=== PATIENT | male | born 1955 | race Caucasian/White ===

== ENCOUNTER → 2017-01-22 | Outpatient (CLI) | payer OTHER ==
[~2017-01-22] MED LIST: APRESOLINE50 MG PO; ASPIRIN LO-DOSE81 MG PO; ASTRAGALUS PO; BENTYL20 MG PO; BRILINTA90 MG PO; BYSTOLIC10 MG PO; CHLORTHALIDONE25 MG PO; COQ-10100 MG PO; COZAAR25 MG PO; FLEXERIL10 MG PO; HUMIBID LA (MU600 MG PO; IMDUR30 MG PO; IMDUR60 MG PO; INSPRA25 MG PO; K-TAB ER20 MEQ PO; LASIX40 MG PO; LIPITOR80 MG PO; MAGNESIUM250 M1 PO; NITROSTAT0.4 MG SL; NORVASC10 MG PO; NORVASC5 MG PO; PROTONIX40 MG PO; SUDAFED PE10 MG PO; TOPROL XL25 MG PO; TYLENOL325 MG PO; VASOTEC2.5 MG PO; VASOTEC5 MG PO
[2017-01-22 16:51] LABS: ALBUMIN 4.1 gm/dL (3.5-5.0); ALK PHOS 135 IU/L (33-138); ALT 38 IU/L (12-78); AST 30 IU/L (10-40); BLOOD UREA NITROGEN 17 mg/dL (6-24); CALCIUM 8.6 mg/dL (8.5-10.5); CHLORIDE 109 mMol/L (96-110); CO2 26 mMol/L (22-32); CREATININE 1.2 mg/dL (0.6-1.3); SODIUM 143 mMol/L (135-145); TOTAL PROTEIN 6.8 g/dL (6.0-8.4)
[2017-01-22 16:56] LABS: ESTIMATED GFR (MDRD EQUATION) > 60
== END ==
LOC: LNHI 16:29
PROVIDERS: Internal Medicine Interventional Cardiology
DX: I25.5 Ischemic cardiomyopathy (principal)

== ENCOUNTER → 2017-04-30 | Outpatient (CLI) | payer OTHER ==
[2017-04-30 16:57] LABS: ANION GAP 13.6 (10.0-19.0); CALCIUM 8.5 mg/dL (8.5-10.5); CREATININE 1.1 mg/dL (0.6-1.3); POTASSIUM 3.6 mMol/L (3.7-5.1); TOTAL BILIRUBIN 1.6 mg/dL (0.0-1.5)
== END ==
LOC: LNHI 16:31
PROVIDERS: Internal Medicine Interventional Cardiology
DX: E78.5 Hyperlipidemia, unspecified (principal); I11.0 Hypertensive heart disease with heart failure; I50.42 Chronic combined systolic (congestive) and diastolic (congestive) heart failure; I25.5 Ischemic cardiomyopathy

== ENCOUNTER → 2017-05-21 | Outpatient (CLI) | payer OTHER ==
--- NOTE | ~2017-05-21 | PUL ---
PATIENT'S NAME: [facility] AGE: 62 Y [address] ROOM: [place] [id number] LOCATION: [facility] ADMIT DATE: 05/21/2017 Pulmonary DISCHARGE DATE: FAMILY PHYSICIAN: Alesha Saul MD ATTENDING PHYSICIAN: Alesha Saul NAME OF PROCEDURE: Pulmonary Function Test DATE OF PROCEDURE: May 21, 2018 TECH: POOJA Floyd REASON FOR EXAM: Reactive airway disease PROCEDURE PERFORMED: Spirometry with bronchodilator assessment. Measurement of maximal voluntary ventilation. Measurement of lung volumes. Measurement of diffusing capacity. RESULTS: Spirometry showed pre bronchodilator FVC was 4.26 liters, 74% of predicted; post bronchodilator FVC was 4.18 liters, 72% of predicted. Pre bronchodilator FEV1 was 3.36 liters, 78% of predicted; post bronchodilator FEV1 is 3.54 liters, 82% of predicted. FEV1/FVC was 79, 105% of predicted. FEF 25-75% was 2.52 liters/second, 103% of predicted. Maximum voluntary ventilation was 136 liters/minute, 87% of predicted. This data did not change significantly following inhaled bronchodilator. Lung volumes show total lung capacity was 7.6 liters, 94% of predicted. Residual volume was 3.2 liters, 114% of predicted. Functional residual capacity was 3.7 liters, 104% of predicted. Diffusing capacity noted adjusted for hemoglobin was 69% of predicted. The single breath alveolar volume was 6.1 liters and with a marginal estimate of total lung capacity. The flow volume loop pattern is normal. IMPRESSION: This data and corresponding flow loop curves are most compatible with a normal pulmonary function and normal lung volumes, with mild impairment in gas transfer(DLCO). Isolated reduction in DLCO could be due to smoking , aneamia , pulmonary vascular disorders etc clinical correlation recommended. MD CALISTA FISCHER/rhett PATIENT'S NAME: [facility] AGE: 62 Y [address] ROOM: [place], [place] [address] LOCATION: [facility] ADMIT DATE: 05/21/2017 Pulmonary DISCHARGE DATE: FAMILY PHYSICIAN: Alesha Saul MD ATTENDING PHYSICIAN: Alesha Saul /[id number] dtt: 05/24/17 1734 , ALINA LINARES dtd: 05/23/17 [id number]
[2017-05-21 14:56] LABS: BICARBONATE 29.8 mmol/L (18.0-23.0); PCO2 41 mmHg (35-45); PO2 62 mmHg (80-90)
== END | disposition disaster alternative care site (69) ==
LOC: GRTH 14:10
DX: J45.909 Unspecified asthma, uncomplicated (principal); R06.2 Wheezing